=== PATIENT | male | born 1940 | race Caucasian/White ===

== ENCOUNTER 2022-09-08 09:00 | Outpatient (RCR) | payer SELFPAY | END 2022-10-06 11:57 | disposition home health service (06) | LOC: RST 09:00 | PROVIDERS: ATTENDING PHYSICIAN Physician Assistant Medical; FAMILY PHYSICIAN Psychiatry & Neurology Neurology | DX: G20 Parkinson's disease (principal) ==

== ENCOUNTER 2025-03-03 17:59 | Emergency (ER) | payer MEDICARE, SELFPAY ==
[2025-03-03 18:00] VITALS: BMI 25.6
[2025-03-03 18:04] VITALS: BP 134/68
[2025-03-03 18:06] VITALS: BP 134/68
[2025-03-03 19:00] VITALS: BP 135/66
[2025-03-03] MEDS: TYLENOL 1000 MG PO (19:15)
--- NOTE | 2025-03-03 19:25 | ED.GENMED ---
History of Present Illness
General
Chief Complaint: Swelling
Source: patient and spouse
Exam Limitations: none
Time Seen by Provider: 03/03/25 18:19
Nursing documentation reviewed up to this point in time: agreed with
History of Present Illness
History of Present Illness:
84-year-old male with history of ESRD on dialysis, Parkinson's, pacemaker, CHF, GERD, HTN, HLD, BPH, chronic indwelling Sutherland presents from [facility] for right arm swelling that noted prior to his discharge from [facility] 5 days ago after
UTI sepsis,, they did an x-ray of the arm and an ultrasound which showed a superficial clot according to , xray was neg.
He was discharged to [facility] 3 days ago and noted increasing arm swelling since then. No recent trauma. The patient is on dialysis and has a right upper arm dialysis catheter.
Pt denies SOB, CP.
Past History
Past History
ED Past Medical History: Arrthythmia (A-fib) and Other (Parkinson's)
ED Past Surgical History: Cardiac (pacemaker) and Orthopedic
Social History
Tobacco: Non-smoker
Alcohol: None
Personal:
Living: with family
Employment: Retired
Review of Systems
Review of Systems
Allergies reviewed?: Yes
All Other Systems: ROS reviewed and negative except as documented in HPI and ROS
Constitutional: Denies fever
Respiratory: Denies trouble breathing
Cardiac: Denies chest pain
ABD/GI: Denies abdominal pain, nausea, vomiting or diarrhea
: Reports other (dialysis, makes a little urine, chronic indwelling Sutherland catheter)
Musculoskeletal: Reports edema (RUE)
Skin: Reports other (Dialysis graft right upper arm)
Neurological: Reports weakness (Generalized weakness and deconditioning)
Phy Exam
Physical Exam
Physical Exam:
GENERAL: No acute distress. A&Ox3.
CONSTITUTIONAL: Afebrile.
EYES: clear, conjunctivae normal
ENMT: moist mucus membranes, Pharynx nl
RESPIRATORY: Regular respirations, nonlabored, lungs clear.
CARDIOVASCULAR: Regular rate and rhythm, no murmurs, no rubs. RUE puffy with edema, distal N/V intact.
GI: Soft, nontender, normal BS
MUSCULOSKELETAL: No bony tenderness RUE. Limited ROM R shoulder (chronic rotator cuff tear) Limited ROM generally, very deconditioned.
SKIN: Warm, dry, pale
PSYCH: Normal mood and affect. Well kept, interactive and appropriate
NEUROLOGIC: Awake, alert and oriented. No focal neurological deficits
Scores
Heart Failure Risk
Heart Failure Risk Score: Not Applicable
Course
Orders/Labs/Results
Orders:
Orders
03/03/25 18:59
US Periph Venous UPPER Ext RT Urgent
Comment:
Reason For Exam: swelling
03/03/25 19:00
Acetaminophen [Tylenol] 1,000 mg PO NOW STA
Vital Signs
Initial and Last Documented VS:
Initial Vital Signs
BP
134/68
03/03/25 18:04
Last Documented Vital Signs
Temp Pulse Resp BP Pulse Ox
98.4 F 62 21 124/66 94
03/03/25 18:06 03/03/25 23:00 03/03/25 23:00 03/03/25 23:00 03/03/25 23:00
MDM/Problems Addressed
Differential Diagnosis Includes:
Dependent Edema, DVT
MDM/Problems Addressed:
84-year-old male with history of ESRD on dialysis, Parkinson's, pacemaker, CHF, GERD, HTN, HLD, BPH, chronic indwelling Sutherland presents from [facility] for right arm swelling that noted prior to his discharge from [facility] 5 days ago after
UTI sepsis,, they did an x-ray of the arm and an ultrasound which showed a superficial clot according to , xray was neg.
He was discharged to [facility] 3 days ago and noted increasing arm swelling since then. No recent trauma. The patient is on dialysis and has a right upper arm dialysis catheter.
Pt denies SOB, CP.
Pt here w at bedside concerned for RUE swelling.
US neg for DVT.
requesting something for pain, he initially denied pain other than in arm. Tylenol ordered as said he has been having low back spasms, he denies this now but states neck is sore.
also requesting check for fecal impaction as no BM in 3-4 days.
Rectal: Soft brown stool high up in rectal vault
Informed her that [facility] keeps track of BMs, she has a meeting with [facility] staff in 2 days and she will address
*Pulse Oximetry
SaO2: 98
Oxygen Mode of Delivery: Room air
Patient hypoxic: no
*Critical Care Note
Total Time (30-74mins, 75-104mins- exclusive of procedures): Not Applicable
ED Attending Note
-
Portions of this chart may have been created with voice recognition software.� Occasional wrong word or��sound alike� substitutions may have occurred due to the inherent limitations of voice recognition software.
Discharge Plan
Departure
Patient Disposition: Home (Routine Discharge)
Date of Disposition: 03/03/25
Time of Disposition: 21:27
Patient with high blood pressure during this ER visit?: No
Condition: Fair
Discharge Problem:
Dependent edema, Physical deconditioning
Instructions: Dependent Edema (DC)
Referrals:
UNKNOWN - PT DOES,NOT KNOW [Family Provider]
Activity Restrictions/Additional Instructions:
Mr. Marx has dependent swelling of the R arm. US neg for clot.
Needs physical therapy
Interventions
Interventions:
*Risk Screen - Suicide Last Done: 03/03/25 18:06
*General Assessment Last Done: 03/03/25 22:50
*Neglect/Abuse Screening Last Done: 03/03/25 18:06
*ED- Fall Risk Assessment Last Done: 03/03/25 18:06
*ED COVID-19 Vaccine History Last Done: 03/03/25 19:10
*Nursing Disposition Last Done: 03/03/25 23:00
ED- Cardiac Assessment Last Done: 03/03/25 19:10
ED- Pulmonary Assessment Last Done: 03/03/25 19:10
ED-Skin Assessment Last Done: 03/03/25 19:10
Discharge Date and Time
Discharge Date/Time: 03/03/25 23:00
Print Language: SYRIAC
[2025-03-03 21:43] VITALS: BP 129/60
[2025-03-03 22:00] VITALS: BP 128/65
[2025-03-03 23:00] VITALS: BP 124/66
== END 2025-03-03 23:00 | disposition home or self-care (01) ==
LOC: EMR 17:59
PROVIDERS: EMERGENCY PHYSICIAN Emergency Medicine
DX: R60.0 Localized edema (principal); R53.81 Other malaise; G20.A1 Parkinson's disease without dyskinesia, without mention of fluctuations; E78.5 Hyperlipidemia, unspecified; I13.2 Hypertensive heart and chronic kidney disease with heart failure and with stage 5 chronic kidney disease, or end stage renal disease; I50.9 Heart failure, unspecified; N18.6 End stage renal disease; Z99.2 Dependence on renal dialysis
CPT/HCPCS: 99284; 93971

== ENCOUNTER 2025-05-12 20:43 | Inpatient (IN) | payer MEDICARE, OTHER, SELFPAY ==
[2025-05-12 16:07] VITALS: BP 104/58
--- NOTE | 2025-05-12 17:46 | ED.GENMED ---
History of Present Illness
General
Chief Complaint: DVT/Possible Blood Clot
Time Seen by Provider: 05/12/25 17:05
History of Present Illness
History of Present Illness:
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
diagnosis of left DVT on Eliquis presenting for concern of increased swelling to left lower extremity. Patient arrives with from his facility. She notes the patient was diagnosed with a DVT 2 weeks ago in his facility and started on Eliquis.
Notes some chronic lymphedema and chronic swelling to the left lower extremity, however feels that it was worse this morning with small area of bruising at the calf region. Patient reporting pain. Patient has been nonambulatory since complicated
admission at [facility] for urosepsis. Patient has been getting physical therapy. She does lift it with a Melisa lift. Unknown trauma to the leg. Patient denies numbness. Overall limited historian given his underlying dementia. No report of any
recent fever. No additional history obtained at this time
Past History
Past History
ED Past Medical History: Arrthythmia (A-fib) and Other (Parkinson's)
ED Past Surgical History: Cardiac (pacemaker) and Orthopedic
Social History
Tobacco: Non-smoker
Alcohol: None
Personal:
Living: with family
Employment: Retired
Phy Exam
Physical Exam
Physical Exam:
General: Well-appearing, no clinical signs of dehydration, nontoxic and in no acute distress
HEENT: protecting airway
Neck: appears supple
CV: Normal heart rate, regular rhythm, no evidence of cyanosis
Resp: No accessory muscle use, no increased work of breathing, lungs clear to auscultation bilaterally
Abd: Soft and non-distended, no tenderness to palpation, normal bowel sounds
Extremities: Right upper extremity AV fistula, palpable thrill. Left lower extremity swelling, increased in comparison to right lower extremity. No significant erythema or warmth. Palpable pulses bilaterally and sensation is intact. Limited
range of motion secondary to recent admission and deconditioning, reported as chronic. Area of ecchymosis at the calf region, soft on palpation, mild tenderness.
Neuro: alert, no focal neurologic deficit
: deferred
Rectal: deferred
Psych: Normal affect
Skin: Intact
Course
Orders/Labs/Results
Orders:
Orders
05/12/25 17:35
US Legs, Left [US Periph Venous LOWER Ext LT] Urgent
Comment:
Reason For Exam: known DVT on eliquis, worsening swelling this am
05/12/25 17:45
Complete Blood Count/With Diff Urgent
Comprehensive Metabolic Panel Urgent
PTT Urgent
Prothrombin Time Urgent
05/12/25 20:23
PTT Urgent
Comment: Obtain baseline before beginning heparin infusion if not already collected
Heparin 5,700 units IV NOW STA
Pharmacy Request to Place See Dose Instructions PO NOW STA
Discontinue all Active Warfarin orders?: Yes
Nursing to Place Non Medication Order As Directed
Physician Order: PTT 6 hours after initial start of Heparin infusion
05/12/25 20:30
Heparin INFUSION titrate rate - CONTINUOUS Heparin 30202 Units/250 ml 25,000 units in 250 ml IV PER PROTOCOL
Weight to be used for heparin protocol in kilograms (kg):: 71.8
Protocol:: DVT/PE
PTT Goal Range to be used:: PTT 73 to 111 seconds
Order type:: Initial
INITIAL Infusion Dose (UNITS/KG/hr) & then follow protocol:: 18 units/kg/hr
Infusion Dose in UNITS/hr & then follow protocol (UNITS/hr):: 1,300
INFUSION RATE in mL/hr & then follow protocol (mL/hr):: 13
For DVT/PE algorithm, re-bolus for low PTT?: Yes
PTT less than or equal to 64 seconds:: Re-bolus 80 units/kg (max 10,000units). Increase by 300 units/hr
(+ 3mL/hr)
PTT 64.1 to 72.9 seconds:: Re-bolus 40 units/kg (max 5,000 units). Increase by 100 units/hr
(+ 1mL/hr)
PTT 73 to 111 seconds:: Target Range. No change in rate.
PTT 111.1 to 130.9 seconds:: Decrease rate by 100 units/hr (- 1 mL/hr)
PTT 131 to 199.9 seconds:: HOLD for 1 hr. Then decrease by 200 units/hr (- 2mL/hr)
PTT greater than or equal to 200 seconds:: HOLD for 2 hrs & Notify Provider. Then decrease by 300 units/hr
(- 3mL/hr)
Lab follow-up:: Each change, PTT q6h until 2 consecutive are therapeutic. Then
PTT daily.
05/12/25 21:[address] See Dose Instructions IV DIRECTED
Abnormal Lab Results
05/12/25
17:45
RBC 3.02 L 10^6/uL
(4.70-6.10)
Hgb 9.4 L g/dL
(13.0-18.0)
Hct 28.8 L %
(39.0-52.0)
MCV 95.4 H fL
(80.0-94.0)
MCH 31.1 H pg
(27.0-31.0)
MCHC 32.6 L g/dL
(33.0-37.0)
RDW 17.2 H %
(11.5-14.5)
Lymphocytes % 18.8 L %
(20.5-51.1)
PT 19.3 H Sec
(11.4-14.6)
APTT 48.6 H Sec
(23.4-35.0)
Sodium 133 L mmol/L
(135-145)
Chloride 97 L mmol/L
(98-107)
Carbon Dioxide 37 H mmol/L
(22-30)
BUN 37 H mg/dl
(9-20)
Creatinine 3.2 H mg/dL
(0.7-1.3)
Calcium 8.3 L mg/dl
(8.4-10.2)
Total Protein 5.0 L g/dl
(6.3-8.2)
Albumin 2.7 L g/dl
(3.5-5.0)
05/12/25 17:45
05/12/25 17:45
Vital Signs
Initial and Last Documented VS:
Initial Vital Signs
Temp Pulse Resp BP Pulse Ox
98.3 F 77 16 104/58 98
05/12/25 16:07 05/12/25 16:07 05/12/25 16:07 05/12/25 16:07 05/12/25 16:07
Last Documented Vital Signs
Temp Pulse Resp BP Pulse Ox
98.3 F 73 25 109/72 98
05/12/25 16:07 05/12/25 19:15 05/12/25 19:15 05/12/25 19:00 05/12/25 19:00
MDM/Problems Addressed
MDM/Problems Addressed:
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
diagnosis of left DVT on Eliquis presenting for concern of increased swelling to left lower extremity. Vital signs on arrival are normal.
On exam patient is resting comfortably, no acute distress or discomfort. Patient does have some swelling to the left lower extremity comparison to the right, however has a known history of recent DVT. Suspect some chronicity to the swelling.
There is an area of ecchymosis to the calf, with some focal tenderness to that region. Suspect some mild trauma to the calf, possibly injury from lifting, may have bumped his leg on something. Area is soft on palpation, without concern for
compartment syndrome. No crepitus. No signs of infection/cellulitis. No neurovascular compromise with intact pulses and sensation. Plan for DVT ultrasound imaging. Will also obtain laboratory analysis, patient did miss hemodialysis today.
Denies any difficulty breathing or chest pain. Without any present concern for volume overloaded state.
20:00 -patient's ultrasound shows acute nonocclusive DVT. Unclear if DVT is new from a few weeks ago. Did call facility, DVT ultrasound was done on 04/23, showed extensive DVT to left lower extremity. Family at bedside is noting that swelling is
much worse than a few weeks ago. At this time cannot rule out acute on subacute. For his reason we will admit for heparin and possible vascular surgery consultation
*Pulse Oximetry
SaO2: 98
Oxygen Mode of Delivery: Room air
Patient hypoxic: no
*Critical Care Note
Total Time (30-74mins, 75-104mins- exclusive of procedures): Not Applicable
ED Attending Note
-
Portions of this chart may have been created with voice recognition software.� Occasional wrong word or��sound alike� substitutions may have occurred due to the inherent limitations of voice recognition software.
Discharge Plan
Departure
Prescriptions:
No Action
sennosides [senna] 8.6 mg Tablet
8.6 mg PO DAILY PRN (Reason: constipation)
acetaminophen 325 mg Tablet
650 mg PO Q4H PRN (Reason: mild pain/fever)
bumetanide 2 mg tablet
2 mg PO SUMOWEFR
Rx Instructions:
give on non-dialysis days
lidocaine 4 % Adhesive Patch,Medicated
1 patch TOPICAL BID
Rx Instructions:
apply to left shoulder every 12 hours and remove per schedule
amiodarone 200 mg Tablet
200 mg PO Q12H
levetiracetam 500 mg tablet
500 mg PO Q12H
cyanocobalamin (vitamin B-12) 1,000 mcg Tablet
1,000 mcg PO DAILY
melatonin 3 mg Tablet
6 mg PO HS
allopurinol 100 mg tablet
100 mg PO DAILY
magnesium hydroxide [Milk of Magnesia] 400 mg/5 mL Suspension
30 ml PO DAILY PRN (Reason: if no BM in 3 days (or small))
bisacodyl 10 mg Suppository
10 mg MN DAILY PRN (Reason: if no BM in 4 days (or small) give on day 5)
pantoprazole 40 mg tablet,delayed release (DR/EC)
40 mg PO DAILY
Fleet Enema 19-7 gram/118 mL Enema
118 ml MN DAILYPRN PRN (Reason: if no BM in 5 days (or small) give on day 6)
nitroglycerin 0.4 mg Tablet, Sublingual
0.4 mg SUBLINGUAL Q5M PRN (Reason: chest pain)
Rx Instructions:
give every 5min x 3
acetic acid 0.25 % Solution
1 irrig IRRIGATION DAILY
folic acid 1 mg tablet
1 mg PO DAILY
mirtazapine 15 mg Tablet
15 mg PO HS
ergocalciferol (vitamin D2) 1,250 mcg (50,000 unit) Capsule
1,250 mcg PO QMONTH
calcitriol 0.25 mcg capsule
0.25 mcg PO TUTHSA
Rx Instructions:
administer at dialysis only
docusate sodium 100 mg Tablet
100 mg PO BID
dutasteride 0.5 mg capsule
0.5 mg PO DAILY
rosuvastatin 40 mg Tablet
40 mg PO DAILY
Eliquis 5 mg Tablet
5 mg PO BID
Referrals:
Kel Vargas DO [Family Provider, Family Practice]
Interventions
Interventions:
*General Assessment Last Done: 05/12/25 18:00
*Neglect/Abuse Screening Last Done: 05/12/25 18:00
*ED- Fall Risk Assessment Last Done: 05/12/25 18:00
ED- Cardiac Assessment Last Done: 05/12/25 18:00
ED- Pulmonary Assessment Last Done: 05/12/25 18:00
ED-Peripheral Vascular Assessment Last Done: 05/12/25 18:00
ED-Skin Assessment Last Done: 05/12/25 18:00
Discharge Date and Time
Print Language: LITHUANIAN
[2025-05-12 18:11] LABS: Hematocrit 28.8 % (39.0-52.0); Hemoglobin 9.4 g/dL (13.0-18.0); Mean Corp Hgb Conc. 32.6 g/dL (33.0-37.0); Mean Corpuscular Volume 95.4 fL (80.0-94.0); Nucleated Red Blood Cells % 0 % (-); Platelet Count 186 10^3/uL (130-400); Red Cell Dist. Width 17.2 % (11.5-14.5)
[2025-05-12 18:19] LABS: INR 1.60; PT 19.3 Sec (11.4-14.6)
[2025-05-12 18:20] LABS: APTT 48.6 Sec (23.4-35.0)
[2025-05-12 18:28] LABS: ALT (SGPT) 14 U/L (0-50); AST (SGOT) 21 U/L (17-59); Albumin 2.7 g/dl (3.5-5.0); Alkaline Phosphatase 59 U/L (38-126); Blood Urea Nitrogen 37 mg/dl (9-20); Calcium 8.3 mg/dl (8.4-10.2); Carbon Dioxide 37 mmol/L (22-30); Chloride 97 mmol/L (98-107); Estimated Creatinine Clearance 17 ml/min; Glucose 98 mg/dl (70-99); Potassium 4.5 mmol/L (3.5-5.1); Sodium 133 mmol/L (135-145); Total Protein 5.0 g/dl (6.3-8.2); eGFR 18.27
[2025-05-12 18:57] VITALS: BP 119/63
[2025-05-12 19:00] VITALS: BP 109/72
--- NOTE | 2025-05-12 20:28 | HPS.HSE ---
Family Physician
-
Family Physician: Kel Vargas
Chief Complaint
-
LLE pain and swelling
History of Present Illness
Patient is an 84y M with PMH significant for ASCVD, ESRD on HD, Parkinson's / dementia who [facility] and [facility]. History obtained from patient, family at the bedside and [facility] record. Patient
developed swelling in the LLE several weeks ago. [facility] showed occlusive D[facility] and patient was started on Eliquis about 2 weeks ago or so. Family noted that his LLE became more swollen over the past few days and patient complained of
increased pain. He was brought to the ED this evening for further evaluation.
Patient denies any chest pain or dyspnea. No fevers / chills.
He is on dialysis T-H-Sat and has had no issues with HD.
He had a superficial thrombus following a long hospital stay in February of this year.
No other / prior history of DVT.
Patient does NOT have prior history of intracerebral bleeding / hemorrhage (this is listed in [facility] diagnoses).
Medical History
Past Medical History
Past Medical History: Reports Other
Additional Past Medical History:
ASCVD (CAD, CVA)
3rd Degree Heart Block
Ventricular Ectopy / Arrhythmia
ESRD on HD
Glomerulonephritis
Parkinson's Disease with Dementia
Seizure Disorder
BPH / Chronic Urinary Retention
Past Surgical History: Reports Other
Additional Past Surgical History:
RUE AVF
PPM Placement
PTCA with Stent
Kidney Biopsy
Bilateral TKA
Rotator Cuff Surgery
Social History
Tobacco: Non-smoker
Alcohol: None
Drug: None
Family History
Family History: Not pertinent
Allergies / Home Medications
Allergies reflects when Allergies were last updated in [facility].
Home Medications with original date entered in [facility]
Allergy/Medication List:
Allergies
Allergy/AdvReac Type Severity Reaction Status Date / Time
Penicillins Allergy Intermediate Rash Verified 05/12/25 16:13
Home Medications
acetaminophen 325 mg tablet 650 mg PO Q4H PRN mild pain/fever 05/12/25
acetic acid 0.25 % irrigation solution 1 irrig irrigation DAILY frequent UTI 05/12/25
allopurinol 100 mg tablet 100 mg PO DAILY 05/12/25
amiodarone 200 mg tablet 200 mg PO Q12H 05/12/25
apixaban 5 mg tablet (Eliquis) 5 mg PO BID 05/12/25
bisacodyl 10 mg rectal suppository 10 mg HI DAILY PRN if no BM in 4 days (or small) give on day 5 05/12/25
bumetanide 2 mg tablet 2 mg PO SUMOWEFR 05/12/25
calcitriol 0.25 mcg capsule 0.25 mcg PO TUTHSA 05/12/25
cyanocobalamin (vitamin B-12) 1,000 mcg tablet 1,000 mcg PO DAILY 05/12/25
docusate sodium 100 mg tablet 100 mg PO BID 05/12/25
dutasteride 0.5 mg capsule 0.5 mg PO DAILY 05/12/25
ergocalciferol (vitamin D2) 1,250 mcg (50,000 unit) capsule 1,250 mcg PO QMONTH 05/12/25
folic acid 1 mg tablet 1 mg PO DAILY 05/12/25
levetiracetam 500 mg tablet 500 mg PO Q12H 05/12/25
lidocaine 4 % topical patch 1 patch topical BID 05/12/25
magnesium hydroxide 400 mg/5 mL oral suspension (Milk of Magnesia) 30 ml PO DAILY PRN if no BM in 3 days (or small) 05/12/25
melatonin 3 mg tablet 6 mg PO HS 05/12/25
mirtazapine 15 mg tablet 15 mg PO HS 05/12/25
nitroglycerin 0.4 mg sublingual tablet 0.4 mg sublingual Q5M PRN chest pain 05/12/25
pantoprazole 40 mg tablet,delayed release 40 mg PO DAILY 05/12/25
rosuvastatin 40 mg tablet 40 mg PO DAILY 05/12/25
sennosides 8.6 mg tablet (senna) 8.6 mg PO DAILY PRN constipation 05/12/25
sodium phosphates 19 gram-7 gram/118 mL enema (Fleet Enema) 118 ml HI DAILYPRN PRN if no BM in 5 days (or small) give on day 6 05/12/25
Review of Systems
-
History Source: Patient and Family
A 12 point ROS was completed and negative except as noted: Yes
Constitutional: Reports Fatigue; Denies Fever or Chills
Respiratory: Denies Cough or Trouble Breathing
Cardiac: Denies Chest Pain or Palpitations
Abdomen/GI: Denies Abdominal Pain, Nausea, Vomiting or Diarrhea
: Reports Sutherland; Denies Flank Pain
Musculoskeletal: Reports Muscle Pain and Edema; Denies Joint Pain
Neurological: Denies Dizzy or Headache
Psych: Denies Depression or Anxiety
Physical Exam
Vital Signs
Vital Signs
Temp Pulse Resp BP Pulse Ox
98.3 F 73 25 109/72 98
05/12/25 16:07 05/12/25 19:15 05/12/25 19:15 05/12/25 19:00 05/12/25 19:00
Physical Exam
General: Other (84y M in no acute distress.)
HEENT: Moist mucous membranes and PERRLA
Respiratory: Clear; No Wheezes, Rales or Rhonchi
Cardiac: S1/S2 and Regular Rhythm; No Murmur
GI: Soft, Non Tender, Non Distended and Normal Bowel Sounds
Genito-urinary: Other (Sutherland in place draining dark yellow urine.)
Musculoskeletal: Other (LLE with 2+ pitting edema. Evident hematoma distal / medial aspect of the LLE with firmness / tenderness / ecchymosis.)
Neuro: Awake and Alert
Laboratory Results
-
05/12/25 17:45
05/12/25 17:45
Laboratory Results
PT 19.3 Sec (11.4-14.6) H 05/12/25 17:45
INR 1.60 05/12/25 17:45
APTT 48.6 Sec (23.4-35.0) H 05/12/25 17:45
Total Bilirubin 0.5 mg/dl (0.2-1.3) 05/12/25 17:45
AST 21 U/L (17-59) 05/12/25 17:45
ALT 14 U/L (0-50) 05/12/25 17:45
Alkaline Phosphatase 59 U/L (38-126) 05/12/25 17:45
Impression/Plan
-
A/P: Patient is an 84y M with PMH significant for ASCVD, ESRD on HD and Parkinson's who [facility] and [facility].
LLE Pain / Swelling
LLE DVT
LLE Hematoma
- Admit for further evaluation and treatment.
- New pain and swelling - ? from unresolved thrombus versus lower extremity hematoma.
- Change to IV heparin for now and monitor for changes in LE pain, swelling, etc.
- US shows residual, nonocclusive clot - but not clear that this would represent Eliquis failure / would not expect clot resolution after only two weeks.
- Try to obtain original US results for comparison.
- Follow for clinical changes.
ASCVD
Ventricular Ectopy
- Stable. No chest pain, palpitations. No new focal neurologic complaints.
- Continue current CV med regimen including amiodarone, statin.
- On Eliquis in lieu of antiplatelet medication - hold while on heparin.
ESRD on HD
- Stable. On HD T-H-Sat schedule.
- Nephrology evaluation for HD needs during acute stay.
- Missed session today and will likely require HD prior to Wednesday.
Parkinson's Disease with Dementia
Seizure Disorder
- Stable. Continue current AEDs.
- Follow for agitation / delirium during acute stay.
BPH
Chronic Urinary Retention
- Stable. Maintain chronic Sutherland.
DVT Prophylaxis: On IV Heparin
Code Status: DNR
[2025-05-12] MEDS: HEPARIN 25000 UNITS/250 ML IV (20:52)
[2025-05-12] MEDS: HEPARIN 5700 UNITS IV (20:52)
[2025-05-12 21:00] VITALS: BP 106/60
[2025-05-12 21:52] VITALS: BP 113/59
[2025-05-12 21:53] VITALS: BMI 21.8
[2025-05-12] MEDS: KEPPRA 500 MG PO (22:39)
[2025-05-12] MEDS: REMERON 15 MG PO (22:39)
[2025-05-12] MEDS: PACERONE 200 MG PO (22:39)
[2025-05-12] MEDS: ROCALTROL 0.25 MCG PO (22:40)
[2025-05-12 23:00] VITALS: BP 111/65
[2025-05-12 23:56] VITALS: BMI 21.8
[2025-05-13 03:00] VITALS: BP 112/67
[2025-05-13 04:23] LABS: APTT > 200 Sec (23.4-35.0)
[2025-05-13 06:00] VITALS: BMI 21.3
[2025-05-13 06:56] LABS: Hematocrit 25.8 % (39.0-52.0); Hemoglobin 8.6 g/dL (13.0-18.0); Mean Corp Hgb Conc. 33.3 g/dL (33.0-37.0); Mean Corpuscular Volume 94.9 fL (80.0-94.0); Platelet Count 173 10^3/uL (130-400); Red Cell Dist. Width 17.2 % (11.5-14.5)
[2025-05-13 07:00] VITALS: BP 114/63
[2025-05-13 08:11] LABS: Blood Urea Nitrogen 45 mg/dl (9-20); Calcium 8.2 mg/dl (8.4-10.2); Carbon Dioxide 30 mmol/L (22-30); Chloride 99 mmol/L (98-107); Estimated Creatinine Clearance 16 ml/min; Glucose 72 mg/dl (70-99); Magnesium 2.0 mg/dl (1.6-2.3); Potassium 4.0 mmol/L (3.5-5.1); Sodium 132 mmol/L (135-145); eGFR 17.60
[2025-05-13] MEDS: LIDOCAINE 4% PATCH 1 PATCH TOPICAL (10:08)
[2025-05-13] MEDS: KEPPRA 500 MG PO (10:08)
[2025-05-13] MEDS: CRESTOR 40 MG PO (10:08)
[2025-05-13] MEDS: TYLENOL 650 MG PO ×2 (10:09→15:07)
[2025-05-13] MEDS: MIRALAX 17 GRAMS PO (10:09)
[2025-05-13] MEDS: BUMEX 2 MG PO (10:09)
[2025-05-13] MEDS: VITAMIN B-12 1000 MCG PO (10:09)
[2025-05-13] MEDS: COLACE 100 MG PO (10:09)
[2025-05-13] MEDS: ZYLOPRIM 100 MG PO (10:09)
[2025-05-13] MEDS: PROSCAR 5 MG PO (10:09)
[2025-05-13] MEDS: PACERONE 200 MG PO (10:09)
[2025-05-13] MEDS: FOLVITE 1 MG PO (10:09)
[2025-05-13 11:00] VITALS: BP 102/58
--- NOTE | 2025-05-13 11:22 | W.PN.HOSP.TC ---
Today's Communication/Plan
-
Dialysis
Discharge
Assessment / Plan
Assessment / Plan
Gen-awake, alert, NAD
HEENT-NC, AT, anicteric, clear oral mm
Neck-supple
CV-reg, no M, +S1/S2
Lungs-clear B/L
Abd-soft, NT, ND
Ext-left lower extremity lymphedema, mild bruising around the ankle
Musculoskeletal-no cyanosis, clubbing
Skin-warm and dry
Neuro-grossly non-focal
Psych-calm, cooperative
Subacute left lower extremity DVT -involving left common femoral and femoral veins. Nonocclusive on ultrasound. I do not believe clinically this represents an acute clot. Rather I suspect this is the residual clot that was diagnosed on April 23
on an outside ultrasound study. Therefore I do not believe this represents Eliquis failure.
Will discontinue IV heparin and transition back to Eliquis today.
Family was concerned due to increased left lower extremity edema, which prompted his admission to the hospital last night. I suspect lymphedema and limited mobility as well as hypoalbuminemia and ESRD have contributed to worsening edema in the leg
with the DVT. He has not been using compression stockings. Discussed with the patient's today to start using compression stockings, keep left lower extremity elevated, and continue anticoagulation with Eliquis. Nutritional support with
protein supplements 3 times daily given hypoalbuminemia.
Very mild left lower extremity superficial hematoma noted. Unclear if it involved a traumatic event prior to admission.
ESRD -requiring dialysis Wednesday//Wednesday. Patient missed dialysis on Wednesday. To get dialyzed today. Discussed with nephrology.
Chronic anemia -suspect related to ESRD.
Hyponatremia -132.
History of stroke
CAD -stable.
Parkinson's disease with dementia
Seizure disorder
Hyperlipidemia -rosuvastatin.
BPH/chronic urinary retention
Permanent pacemaker
DNR
Dispo -anticipate discharging back to [facility] after dialysis today. Discussed with family as well as case management.
40 minutes spent in reviewing records, speaking with patient and examining patient, speaking with family, speaking with other providers, discharge process.
Anticipated Discharge: Today
Subjective/Interval History
-
Date of Service: May 13, 2025
Patient seen and examined. No complaints.
Objective Data
-
Labs:
Laboratory Results
05/13/25 05/13/25 05/13/25
03:29 06:37 12:30
WBC 7.0
Hgb 8.6 L
Hct 25.8 L
Plt Count 173
APTT > 200 H* Cancelled
Sodium 132 L
Potassium 4.0
Chloride 99
Carbon Dioxide 30
BUN 45 H
Creatinine 3.3 H
Glucose 72
Calcium 8.2 L
Vital Signs:
Vital Signs
Temp Pulse Resp BP Pulse Ox
97.8 F 71 17 114/63 99
05/13/25 07:00 05/13/25 07:00 05/13/25 07:00 05/13/25 07:00 05/13/25 07:00
I&O
05/12/25 05/13/25 05/14/25
06:59 06:59 06:59
Output Total 150 / 150
Balance -150 / -150
Review of Systems
-
Unable to obtain full review of systems at this time due to: Dementia
History Source: Patient
All other systems: Reviewed and negative
--- NOTE | 2025-05-13 11:33 | W.DS.TRANS ---
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
-
Discharge Instructions:
Discharge Diagnosis/Procedures Subacute left leg DVT, lymphedema, ESRD
Diet 2 Gram Sodium
Activity With assistance,As tolerated
Driving Restrictions No driving
Bathing Restrictions None
Instructions:
Stand-Alone Forms:
Changes to Home Medications: No
Discharge Medications:
DC Medications w/original date entered in [facility]
acetaminophen 325 mg tablet 650 mg PO Q4H PRN mild pain/fever 05/12/25
acetic acid 0.25 % irrigation solution 1 irrig irrigation DAILY frequent UTI 05/12/25
allopurinol 100 mg tablet 100 mg PO DAILY 05/12/25
amiodarone 200 mg tablet 200 mg PO Q12H 05/12/25
apixaban 5 mg tablet (Eliquis) 5 mg PO BID 05/12/25
bisacodyl 10 mg rectal suppository 10 mg VA DAILY PRN if no BM in 4 days (or small) give on day 5 05/12/25
bumetanide 2 mg tablet 2 mg PO SUMOWEFR 05/12/25
calcitriol 0.25 mcg capsule 0.25 mcg PO TUTHSA 05/12/25
cyanocobalamin (vitamin B-12) 1,000 mcg tablet 1,000 mcg PO DAILY 05/12/25
docusate sodium 100 mg tablet 100 mg PO BID 05/12/25
dutasteride 0.5 mg capsule 0.5 mg PO DAILY 05/12/25
ergocalciferol (vitamin D2) 1,250 mcg (50,000 unit) capsule 1,250 mcg PO QMONTH 05/12/25
folic acid 1 mg tablet 1 mg PO DAILY 05/12/25
levetiracetam 500 mg tablet 500 mg PO Q12H 05/12/25
lidocaine 4 % topical patch 1 patch topical BID 05/12/25
magnesium hydroxide 400 mg/5 mL oral suspension (Milk of Magnesia) 30 ml PO DAILY PRN if no BM in 3 days (or small) 05/12/25
melatonin 3 mg tablet 6 mg PO HS 05/12/25
mirtazapine 15 mg tablet 15 mg PO HS 05/12/25
nitroglycerin 0.4 mg sublingual tablet 0.4 mg sublingual Q5M PRN chest pain 05/12/25
pantoprazole 40 mg tablet,delayed release 40 mg PO DAILY 05/12/25
rosuvastatin 40 mg tablet 40 mg PO DAILY 05/12/25
sennosides 8.6 mg tablet (senna) 8.6 mg PO DAILY PRN constipation 05/12/25
sodium phosphates 19 gram-7 gram/118 mL enema (Fleet Enema) 118 ml VA DAILYPRN PRN if no BM in 5 days (or small) give on day 6 05/12/25
Home Medication Changes
Pending Results: No
[2025-05-13] MEDS: ELIQUIS 5 MG PO ×2 (11:35→19:52)
--- NOTE | 2025-05-13 13:41 | W.CON.NEPH ---
Consultation
-
Date/Time Consultation Requested: 05/13/25 0051
Date/Time Consultation Performed: 05/13/25 1400
Requesting Provider: Clint Alvares
Performing Provider: Tamara Norris
Reason for Consultation: ESRD
Medical History
-
Chief Complaint: LLE pain and swelling
History of Present Illness:
84y M with PMH significant for ASCVD, ESRD on HD TTS at [place], Parkinson's / dementia, SXDO on Keppra, BPH on dutasteride, HLD on statin, GERD On PPI, ventricular arrhythmia on Amiodarone who presents to ED from local [facility] for evaluation of LLE
pain and swelling. History obtained from chart that Patient developed swelling in the LLE several weeks ago. An US done at the [facility] showed occlusive DVT and patient was started on Eliquis about 2 weeks ago or so. Family noted that his LLE became
more swollen over the past few days and patient complained of increased pain. He was brought to the ED last evening for further evaluation.
Patient denies any chest pain or dyspnea. No fevers / chills. But poor historian with dementia.
Past Medical History
ASCVD (CAD, CVA)
3rd Degree Heart Block
Ventricular Ectopy / Arrhythmia
ESRD on HD
Glomerulonephritis
Parkinson's Disease with Dementia
Seizure Disorder
BPH / Chronic Urinary Retention
Past Surgical History: Other (RUE AVF PPM Placement PTCA with Stent Kidney Biopsy Bilateral TKA Rotator Cuff Surgery)
Social History
Tobacco: Non-Smoker
Alcohol: None
Drug: None
Living: Shelter
Family History
Family History: Not Pertinent
Allergies / Home Medications
Allergy/AdvReac Type Severity Reaction Status Date / Time
Penicillins Allergy Intermediate Rash Verified 05/12/25 16:13
�Medication �Instructions �Recorded �Confirmed �Type
acetaminophen 325 mg tablet 650 mg PO Q4H PRN mild pain/fever 05/12/25 05/12/25 History
acetic acid 0.25 % irrigation 1 irrig irrigation DAILY frequent 05/12/25 05/12/25 History
solution UTI
allopurinol 100 mg tablet 100 mg PO DAILY Gout 05/12/25 05/12/25 History
amiodarone 200 mg tablet 200 mg PO Q12H Arrhythmia 05/12/25 05/12/25 History
apixaban 5 mg tablet (Eliquis) 5 mg PO BID Blood Clot 05/12/25 05/12/25 History
Prevention/Tx
bisacodyl 10 mg rectal suppository 10 mg MN DAILY PRN if no BM in 4 05/12/25 05/12/25 History
days (or small) give on day 5
bumetanide 2 mg tablet 2 mg PO SUMOWEFR Fluid 05/12/25 05/12/25 History
Retention/Swelling
calcitriol 0.25 mcg capsule 0.25 mcg PO TUTHSA Supplement 05/12/25 05/12/25 History
cyanocobalamin (vitamin B-12) 1,000 mcg PO DAILY Supplement 05/12/25 05/12/25 History
1,000 mcg tablet
docusate sodium 100 mg tablet 100 mg PO BID Constipation 05/12/25 05/12/25 History
dutasteride 0.5 mg capsule 0.5 mg PO DAILY Urinary Issue 05/12/25 05/12/25 History
ergocalciferol (vitamin D2) 1,250 1,250 mcg PO QMONTH Supplement 05/12/25 05/12/25 History
mcg (50,000 unit) capsule
folic acid 1 mg tablet 1 mg PO DAILY Supplement 05/12/25 05/12/25 History
levetiracetam 500 mg tablet 500 mg PO Q12H Seizures 05/12/25 05/12/25 History
lidocaine 4 % topical patch 1 patch topical BID Pain 05/12/25 05/12/25 History
magnesium hydroxide 400 mg/5 mL 30 ml PO DAILY PRN if no BM in 3 05/12/25 05/12/25 History
oral suspension (Milk of Magnesia) days (or small)
melatonin 3 mg tablet 6 mg PO HS Sleep 05/12/25 05/12/25 History
mirtazapine 15 mg tablet 15 mg PO HS Sleep 05/12/25 05/12/25 History
nitroglycerin 0.4 mg sublingual 0.4 mg sublingual Q5M PRN chest 05/12/25 05/12/25 History
tablet pain
pantoprazole 40 mg tablet,delayed 40 mg PO DAILY Gastrointestinal 05/12/25 05/12/25 History
release Issue
rosuvastatin 40 mg tablet 40 mg PO DAILY High Cholesterol 05/12/25 05/12/25 History
sennosides 8.6 mg tablet (senna) 8.6 mg PO DAILY PRN constipation 05/12/25 05/12/25 History
sodium phosphates 19 gram-7 118 ml MN DAILYPRN PRN if no BM in 05/12/25 05/12/25 History
gram/118 mL enema (Fleet Enema) 5 days (or small) give on day 6
Review of Systems
-
Unable to obtain full review of systems at this time due to: Dementia
Physical Exam
Vital Signs
Vital Signs
Temp Pulse Resp BP Pulse Ox
97.6 F 70 17 102/58 98
05/13/25 11:00 05/13/25 11:00 05/13/25 11:00 05/13/25 11:00 05/13/25 11:00
Lab Results
WBC 7.0 10^3/uL (4.8-10.8) 05/13/25 06:37
RBC 2.72 10^6/uL (4.70-6.10) L 05/13/25 06:37
Hgb 8.6 g/dL (13.0-18.0) L 05/13/25 06:37
Hct 25.8 % (39.0-52.0) L 05/13/25 06:37
Plt Count 173 10^3/uL (130-400) 05/13/25 06:37
Sodium 132 mmol/L (135-145) L 05/13/25 06:37
Potassium 4.0 mmol/L (3.5-5.1) 05/13/25 06:37
Chloride 99 mmol/L (98-107) 05/13/25 06:37
Carbon Dioxide 30 mmol/L (22-30) 05/13/25 06:37
BUN 45 mg/dl (9-20) H 05/13/25 06:37
Creatinine 3.3 mg/dL (0.7-1.3) H 05/13/25 06:37
eGFR 17.60 05/13/25 06:37
Glucose 72 mg/dl (70-99) 05/13/25 06:37
Calcium 8.2 mg/dl (8.4-10.2) L 05/13/25 06:37
Phosphorus 2.5 mg/dl (2.5-4.5) 05/13/25 06:37
Albumin 2.7 g/dl (3.5-5.0) L 05/12/25 17:45
Physical Exam
General: Awake, Alert, Oriented, No Distress and Nontoxic
HEENT: EOMI, Anicteric and Facial Symmetry
Respiratory: Clear, Normal Excursion and Nonlabored Respirations
Cardiac: S1/S2 and Regular Rate/Rhythm
Breast: Deferred by me
Abdomen: Soft, Nontender and Nondistended
Musculoskeletal: Edema (left 3+)
Skin: No Rash
Neuro: Nonfocal/Grossly Intact
Psych: Appropriate
Data Reviewed
-
Labs: Labs Reviewed by me and Discussed with Patient
Assessment/Plan
-
IMP:
LLE Pain / Swelling
LLE DVT
LLE Hematoma
ASCVD
h/o Ventricular Ectopy
ESRD on HD-TTS at [facility]
Parkinson's Disease with Dementia
Seizure Disorder
BPH
left AVF
Plan:
A/w increased swelling and pain of left leg with known recent DVT 2weeks ago
US Noted acute DVT -AC per primary
missed HD yesterday-arrange today
monitor h/h , TAMIE with HD
noted plan d/c after HD today
hemodynamically stable
[2025-05-13] MEDS: RETACRIT 10000 UNITS IV (14:27)
[2025-05-13 15:00] VITALS: BP 104/57
--- NOTE | 2025-05-13 15:07 | W.PN.NEPH.HD ---
Assessment
-
pt seen during HD
vitals stable
SBP 90s during visit
witl edema, try UF with midodrine
AVF functiosn well
Progress Note - Hemodialysis
-
Date of Service: May 13, 2025
Duration: 30 minutes and 3 hours
Potassium Bath: 3
Calcium Bath: 2.5
Opti-Dialyzer: 160
Ultrafiltration: Other (1.5-2)
Blood Flow: 400
Dialysate Flow: 600
Heparin: no
EPO: [id number]
--- NOTE | 2025-05-13 15:33 | CM ---
Pt admitted via ED from [facility] with Occlusive DVT. He is on dialysis T-H-Sat and has had no issues with HD.
Pt currently on dialysis with plan for return to [facility] this evening when dialysis is completed.
CM called [facility] and spoke with [facility] who agrees to pt's return after dialysis.
Ambulance transport requested for discharge to [facility].
[facility] Report: [phone]
[facility]
[2025-05-13 19:05] VITALS: BP 120/59
== END 2025-05-13 20:42 | DRG 299 ==
LOC: 3 WEST ACU 20:43
PROVIDERS: ADMITTING PHYSICIAN Hospitalist; ATTENDING PHYSICIAN Hospitalist; CONSULT PHYSICIAN Internal Medicine; EMERGENCY PHYSICIAN Student in an Organized Health Care Education/Training Program; FAMILY PHYSICIAN Family Medicine
PROC: 5A1D70Z Performance of Urinary Filtration, Intermittent, Less than 6 Hours Per Day (ICD-10-PCS; 2025-05-13)
DX: I82.402 Acute embolism and thrombosis of unspecified deep veins of left lower extremity (principal); N18.6 End stage renal disease; I12.0 Hypertensive chronic kidney disease with stage 5 chronic kidney disease or end stage renal disease; I25.10 Atherosclerotic heart disease of native coronary artery without angina pectoris; Z99.2 Dependence on renal dialysis; G20.A1 Parkinson's disease without dyskinesia, without mention of fluctuations; Z86.718 Personal history of other venous thrombosis and embolism; I49.3 Ventricular premature depolarization; G40.909 Epilepsy, unspecified, not intractable, without status epilepticus; N40.1 Benign prostatic hyperplasia with lower urinary tract symptoms; R33.8 Other retention of urine; Z96.653 Presence of artificial knee joint, bilateral; Z95.5 Presence of coronary angioplasty implant and graft; Z88.0 Allergy status to penicillin; Z66 Do not resuscitate; E78.00 Pure hypercholesterolemia, unspecified; F02.80 Dementia in other diseases classified elsewhere, unspecified severity, without behavioral disturbance, psychotic disturbance, mood disturbance, and anxiety; I48.91 Unspecified atrial fibrillation; I89.0 Lymphedema, not elsewhere classified; Z79.01 Long term (current) use of anticoagulants; Z95.0 Presence of cardiac pacemaker; K21.9 Gastro-esophageal reflux disease without esophagitis; Z79.899 Other long term (current) drug therapy
CPT/HCPCS: 80048; 80053; 83735; 84100; 85025; 85027; 85610; 85730; 87070; 93971; 99282; 99285; G0257; P9047; Q5106